=== PATIENT | female | born 1995 | race Caucasian/White ===

== ENCOUNTER 2022-11-07 02:39 | Observation (INO) | payer BC, OTHER, SELFPAY ==
--- NOTE | 2022-11-07 02:39 | OBADM ---
This patient, Jeannine Zamora, admitted to the OB room OB Post 113 for observation. Patient/family oriented to hospital policies and general routines including ID bracelet, bed and alarms, visiting hours, pain management, procedures, bathroom and other care routines, personal items, smoking policy, room service/diet, and visiting hours. Patient/Family are encouraged to report perceived risks to care and to ask questions if they do not understand what they are told or what they should do.
[2022-11-07 03:07] VITALS: BP 130/83; PULSE 85; RESP 16; TEMP 36.6
[2022-11-07 03:13] VITALS: BMI 25.0
[2022-11-07 03:15] VITALS: BP 119/88; PULSE 95
[2022-11-07 03:30] VITALS: BP 120/76; PULSE 84
[2022-11-07 03:45] VITALS: BP 125/76; PULSE 84
[2022-11-07 04:00] VITALS: BP 115/74; PULSE 84
[2022-11-07 04:04] LABS: Appearance Urine Cloudy (Clear); Bacteria Urine 4+ /hpf; Bilirubin Urine Negative (Negative); Blood Urine Negative (Negative); Color Urine Yellow (Yellow); Glucose Urine UA Negative (Negative); Ketones Urine Negative (Negative); Leukocyte Esterase Ur 3+ LEU/UL (Negative); Need Manual Microscopic Reviewed; Nitrate Urine Negative (Negative); Non Pathogenic Casts >20; Protein Urine Trace mg/dL (Negative); RBC Urine 0-2 /hpf (0-2); Specific Grav Ur 1.013 (1.001-1.035); Squamous Epithelial Cell Urine Few /hpf (Few); Urobilinogen Urine 0.2 mg/dL (<2.0); WBC Urine >100 /hpf
[2022-11-07 04:05] LABS: Add Urine Microscopic? YES
--- NOTE | 2022-11-07 04:14 | PC.NURSE ---
Updated Dr. Chambers on assessment and maternal assessments. Notified of UA results. FHT appropriate for gestational age during monitoring. Rare contraction during monitoring that resolved after PO hydration. Patient states she is no longer feeling contractions or tightening at time of update. VSS. Orders received for discharge.
[2022-11-07 04:15] VITALS: BP 119/77; PULSE 85
--- NOTE | 2022-11-07 04:32 | PC.NURSE ---
Discharge instructions reviewed with patient. labor precautions reviewed. Patient instructed to return to OB if she has any concerns or symptoms worsen. Patient states she is resting comfortably at time of discharge and states she is no longer feeling contractions. Patient instructed to nut picker prescriptions from pharmacy and finish entire prescription as prescribed. Antibiotic education provided. Patient states understanding of education and discharge instructions. Patient instructed to follow-up with Dr. Baptiste as scheduled.
--- NOTE | 2022-11-28 20:11 | PM.OBTRLD ---
OB - Triage/Final Diagnosis Visit Information Comments/Additional reasons for admission: I have assessed the risk for this patient, Jeannine Zamora, and determined that she would benefit from observation care. Evaluation Laboratory results: Laboratory Tests 11/07/22 03:10 Urine Color Yellow Urine Appearance Cloudy H Urine pH 6.0 Ur Specific [place] 1.013 Urine Protein Trace Urine Glucose (UA) Negative Urine Ketones Negative Ur Blood (Man) Negative Urine Nitrate Negative Urine Bilirubin Negative Urine Urobilinogen 0.2 Add Ur Microanalysis Reviewed Leukocyte Esterase Rfl 3+ H Urine RBC 0-2 Urine WBC >100 H Ur Squamous Epith Cells Few Urine Bacteria 4+ H Urine Casts >20 Final Diagnosis (1) False labor: Code(s): O47.9 - False labor, unspecified Status: Acute
== END 2022-11-07 04:35 | disposition home or self-care (01) ==
PROVIDERS: Admitting Provider Obstetrics & Gynecology; Visit Provider Obstetrics & Gynecology
DX: O47.02 False labor before 37 completed weeks of gestation, second trimester (principal); Z3A.25 25 weeks gestation of pregnancy
CPT/HCPCS: 81001; 87086; 87088; G0378; G0379

== ENCOUNTER 2023-02-13 17:00 | Inpatient (IN) | payer BC, OTHER, SELFPAY ==
[2023-02-13] VITALS (13 sets, daily range): BP systolic 114–132; BP diastolic 70–92; PULSE 80–111; RESP 16; TEMP 36.1–36.4; O2SAT 100; BMI 27.6
[2023-02-13 17:44] LABS: Basophils Percent Auto 0.4 % (0.2-1.2); Eosinophils Absolute Auto 0.1 K/mm3 (0-0.3); Eosinophils Percent Auto 0.9 % (0-4.4); Hematocrit 34.4 % (37.0-47.0); Hemoglobin 11.6 g/dL (12.0-15.0); Immature Granulocyte Absolute 0.13 K/mm3 (0.00-0.031); Immature Granulocyte Percent A 1.2 % (0-0.5); Lymphocytes Absolute Auto 2.34 K/mm3 (0.9-3.2); Lymphocytes Percent Auto 21.2 % (18.3-44.2); Mean Corpuscular HGB Conc 33.7 g/dl (32-36); Mean Corpuscular Hemoglobin 33.4 pg (26-34); Mean Corpuscular Volume 99.1 fl (80-100); Mean Platelet Volume 12.8 fl (7.4-10.4); Monocytes Absolute Auto 0.8 K/mm3 (0.1-0.6); Monocytes Percent Auto 7.5 % (2.6-8.5); Neutrophils Absolute Auto 7.6 K/mm3 (1.3-6.7); Neutrophils Percent Auto 68.8 % (45.5-73.1); Platelet Count Result 124 k/mm3 (150-375); Red Blood Count 3.47 M/mm3 (4.2-5.4); Red Cell Distribution Width 12.8 % (11.5-14.5)
--- NOTE | 2023-02-13 17:46 | LDADM ---
This patient, Jeannine Zamora, was admitted to Labor/Delivery/Recovery 107 on 02/13/23 at 17:00. Plans for labor, pain management and were discussed with patient. Patient/family oriented to hospital policies and general routines including ID bracelet, bed and alarms, visiting hours, pain management, procedures, bathroom and other care routines, personal items, smoking policy, room service/diet and guest tray routines, security routines, and visiting hours. Patient/Family are encouraged to report perceived risks to care and to ask questions if they do not understand what they are told or what they should do. See OBIX for further documentation.
[2023-02-13] MEDS: OXYTOCIN 30 UNITS/NS 500 ML 30 UNITS/500 ML BAG 6 UNITS IV CONT (17:54)
[2023-02-13] MEDS: LACTATED RINGERS 1,000 ML 125 ML IV CONT (17:54)
[2023-02-14] VITALS (222 sets, daily range): BP systolic 75–151; BP diastolic 49–132; PULSE 68–146; RESP 16–18; TEMP 36.1–37.3; O2SAT 97–100
--- NOTE | 2023-02-14 03:34 | WPDANESEPP ---
Anes - Eval Pre Procedure Procedure: labor epidural Date/Time: 02/14/23 03:34 Pre Op Diagnosis: IOL Patient Data Age: 27 Gender: F Height: 1.63 m Weight: 73 kg Last Vital Signs Temp 36.4 C 02/14/23 01:30 Pulse 71 02/14/23 03:01 Resp 16 02/13/23 18:24 BP 128/68 02/14/23 03:01 Pulse Ox 100 02/13/23 18:24 O2 Del Method Room Air 02/13/23 17:45 Allergies Allergy/AdvReac Type Severity Reaction Status Date / Time No Known Allergies Allergy Verified 11/07/22 04:18 Home Medications Medication Instructions Recorded Confirmed Type Vitamin 1 tablet PO DAILY 11/07/22 02/13/23 History ferrous sulfate 325 mg (65 mg 325 mg PO DAILY 01/20/23 01/20/23 History iron) tablet Laboratory Tests 02/13/23 17:24 WBC 11.0 H K/mm3 (4.5-10.0) RBC 3.47 L M/mm3 (4.2-5.4) Hgb 11.6 L g/dL (12.0-15.0) Hct 34.4 L % (37.0-47.0) MCV 99.1 fl (80-100) MCH 33.4 pg (26-34) MCHC 33.7 g/dl (32-36) RDW 12.8 % (11.5-14.5) Plt Count 124 L k/mm3 (150-375) MPV 12.8 H fl (7.4-10.4) Immature Gran % (Auto) 1.2 H % (0-0.5) Neut % (Auto) 68.8 % (45.5-73.1) Lymph % (Auto) 21.2 % (18.3-44.2) [place] % (Auto) 7.5 % (2.6-8.5) Eos % (Auto) 0.9 % (0-4.4) Baso % (Auto) 0.4 % (0.2-1.2) Lymph # (Auto) 2.34 K/mm3 (0.9-3.2) [place] # (Auto) 0.8 H K/mm3 (0.1-0.6) Eos # (Auto) 0.1 K/mm3 (0-0.3) Baso # (Auto) 0.0 K/mm3 (0.0-0.1) Abs Immat Gran (auto) 0.13 H K/mm3 (0.00-0.031) Absolute Neuts (auto) 7.6 H K/mm3 (1.3-6.7) Absolute Nucleated RBC 0.0 K/mm3 (0.0-0.012) Nucleated RBC % 0.0 % (0.0-0.2) RPR Pending Blood Type O Positive Antibody Screen Negative Patient hx anesthesia problems: none Family hx anesthesia problems: none Results Review: All pre-operative results and documents have been reviewed as part of the pre-operative evaluation. COUNT INCLUDES THE [facility] Family History Family History Father Hypertension Social History Social History Smoking status: Never smoker Substance use: never Lack of Transportation: No Lack of Food: Never True Current Housing: I Have Housing Concerned About Future Housing: No Difficulty Paying Gas/Electric Bills: No Difficulty Paying for Meds: No Currently Unemployed: No Education: Master's Degree or Higher Difficulty w/ Childcare or Family Care: No Spiritual care concerns: No Exam Day of Procedure 02/14/23 03:34 Patient weight: overweight Heart: regular rate and rhythm Lungs: clear to auscultation Airway: Mallampati scale Neurological: alert and oriented
[2023-02-14] MEDS: LACTATED RINGERS 500 ML 999 ML IV CONT (03:40)
--- NOTE | 2023-02-14 07:31 | PM.IMHP ---
H&P: HPI History of Present Illness Date/Time: 02/14/23 07:31 Chief Complaint: induction of labor Narrative: Jeannine is a G1 at 39.3 for elective IOL. has been complicated by anemia and circumvallate placenta, normal growth. On pitocin since last night, has epidural. Review of Systems Review of Systems: All systems reviewed & are unremarkable except as noted in HPI and below PMFSH Family History Family History Father Hypertension Social History Social History Smoking status: Never smoker Substance use: never Lack of Transportation: No Lack of Food: Never True Current Housing: I Have Housing Concerned About Future Housing: No Difficulty Paying Gas/Electric Bills: No Difficulty Paying for Meds: No Currently Unemployed: No Education: Master's Degree or Higher Difficulty w/ Childcare or Family Care: No Spiritual care concerns: No Meds Home Medications and Allergies Home Medications Medication Instructions Recorded Confirmed Type Vitamin 1 tablet PO DAILY 11/07/22 02/13/23 History ferrous sulfate 325 mg (65 mg 325 mg PO DAILY 01/20/23 01/20/23 History iron) tablet Allergies Allergy/AdvReac Type Severity Reaction Status Date / Time No Known Allergies Allergy Verified 11/07/22 04:18 Vital Signs Vital Signs - 24 hr 02/13/23 17:24 02/13/23 18:16 02/13/23 18:31 Temperature Pulse Rate 101 H 91 86 Respiratory Rate Blood Pressure 129/92 H 131/92 H 132/84 Pulse Oximetry Oxygen Delivery 02/13/23 18:46 02/13/23 19:01 02/13/23 20:01 Temperature Pulse Rate 88 88 111 H Respiratory Rate Blood Pressure 123/81 126/81 131/92 H Pulse Oximetry Oxygen Delivery 02/13/23 21:01 02/13/23 21:00 02/13/23 22:01 Temperature 97 F L Pulse Rate 100 80 Respiratory Rate Blood Pressure 126/78 114/74 Pulse Oximetry Oxygen Delivery 02/13/23 22:00 02/13/23 23:01 02/13/23 22:30 Temperature 97.6 F 97.6 F Pulse Rate 90 Respiratory Rate Blood Pressure 119/70 Pulse Oximetry Oxygen Delivery 02/14/23 00:01 02/14/23 00:00 02/14/23 01:01 Temperature 97.6 F Pulse Rate 75 101 H Respiratory Rate Blood Pressure 116/64 119/77 Pulse Oximetry Oxygen Delivery 02/14/23 01:30 02/14/23 02:01 02/14/23 03:01 Temperature 97.6 F Pulse Rate 85 71 Respiratory Rate Blood Pressure 120/70 128/68 Pulse Oximetry Oxygen Delivery 02/14/23 03:46 02/14/23 03:49 02/14/23 03:51 Temperature Pulse Rate 96 100 Respiratory Rate Blood Pressure 134/91 H 120/86 Pulse Oximetry 99 99 Oxygen Delivery 02/14/23 03:54 02/14/23 03:55 02/14/23 03:57 Temperature Pulse Rate 89 69 Respiratory Rate Blood Pressure 116/75 127/83 Pulse Oximetry 100 Oxygen Delivery 02/14/23 03:59 02/14/23 04:00 02/14/23 04:01 Temperature Pulse Rate 82 79 Respiratory Rate Blood Pressure 125/74 131/74 Pulse Oximetry 100 Oxygen Delivery 02/14/23 04:05 02/14/23 04:06 02/14/23 04:10 Temperature Pulse Rate 78 Respiratory Rate Blood Pressure 127/74 Pulse Oximetry 100 100 Oxygen Delivery 02/14/23 04:15 02/14/23 04:16 02/14/23 04:20 Temperature Pulse Rate 74 Respiratory Rate Blood Pressure 117/73 Pulse Oximetry 99 99 Oxygen Delivery 02/14/23 04:25 02/14/23 04:30 02/14/23 04:31 Temperature Pulse Rate 68 Respiratory Rate Blood Pressure 115/74 Pulse Oximetry 98 100 Oxygen Delivery 02/14/23 04:35 02/14/23 04:40 02/14/23 04:45 Temperature Pulse Rate Respiratory Rate Blood Pressure Pulse Oximetry 99 100 99 Oxygen Delivery 02/14/23 04:50 02/14/23 04:55 02/14/23 05:00 Temperature Pulse Rate Respiratory Rate Blood Pressure Pulse Oximetry 98 98 98 Oxygen Delivery
[2023-02-14] MEDS: LACTATED RINGERS 1,000 ML 125 ML IV CONT (09:01)
[2023-02-14 12:48] LABS: Rapid Plasma Reagin Non-Reactive (NonReactive)
[2023-02-14] MEDS: ONDANSETRON INJ 4 MG/2 ML VIAL IV PUSH (14:08)
--- NOTE | 2023-02-14 16:59 | P.PCNOB_ITS ---
OB - Delivery Note Procedure Delivery date: 02/14/23 Procedure: Intrapartal Events: Placental Abruption and Other (shoulder dystocia) Induction method: AROM and Per Pitocin Protocol Delivery monitor: External FHT and Internal Uterine Route of delivery: Laceration Description: Perineal - 2nd Degree Delivery repair: vicryl Quantitative Blood Loss (ml): 310 Anesthesia type: Epidural Disposition: Floor Narrative: Bloody fluid was noted while pushing. With adequate expulsive efforts by the mother, the baby's head was delivered OA. The turtle sign was observed. A 60 second shoulder dystocia was encountered and resolved with McRobert's and suprapubic pressure. The baby's anterior shoulder was delivered under the pubic symphysis and the posterior shoulder and the rest of the baby delivered without difficulty. The was placed on the mothers chest and suctioned and stimulated. The cord was clamped and cut after 30 seconds. Mother and baby both stable. The placenta delivered spontaneously and relatively quickly. Dark clot was noted over almost half of the surface, consistent with placental abruption. [place] Baby Date of : 02/14/23 Time of : 16:42 Weeks of gestation at delivery: 39 gender: Female presentation: vertex Placenta delivery description: Spontaneous Cord Vessel Description: 3 Vessels and Delayed Cord Clamping score one minute: 8 score five minutes: 9
[2023-02-14] MEDS: OXYTOCIN 30 UNITS/NS 500 ML 30 UNITS/500 ML BAG 125 UNITS IV CONT (17:00)
[2023-02-14] MEDS: BENZOCAINE 20% AER SPR (*SP) 56 GM CAN 1 SPRAY TOPICAL (18:51)
[2023-02-14] MEDS: WITCH HAZEL 40 PADS 1 PAD TOPICAL (18:51)
--- NOTE | 2023-02-14 19:02 | OBPPTRN ---
Patient transferred to post room #292 via wheelchair. Support person present. Oriented to unit, room, information board, rooming in, admission packet and security measures. Patient verbalizes understanding.
[2023-02-14] MEDS: IBUPROFEN 600 MG TABLET PO (19:26)
[2023-02-15] MEDS: IBUPROFEN 600 MG TABLET PO ×3 (03:37→17:59)
[2023-02-15 04:42] LABS: Hematocrit 33.9 % (37.0-47.0); Hemoglobin 10.9 g/dL (12.0-15.0)
[2023-02-15 08:05] VITALS: BP 129/77; PULSE 95; RESP 16; TEMP 36.8; O2SAT 98
[2023-02-15] MEDS: DOCUSATE SODIUM 100 MG CAPSULE PO (08:10)
[2023-02-15] MEDS: ACETAMINOPHEN 325 MG TABLET 650 MG PO ×2 (08:10→19:43)
[2023-02-15] MEDS: MULTIVIT/MIN/PREN/FOL AC/IRON TABLET 1 TAB PO (08:10)
--- NOTE | 2023-02-15 08:18 | PM.OBPNVD ---
OB - PN: Subj Subjective Date/time seen: 02/15/23 08:18 Patient comments: no complaints and pain well controlled baby status: doing well and nursing well [place] feeding status: exclusively breast feeding OB - PN: Obj Data Labs 02/15/23 03:41 Labs: Laboratory Results - last 24 hr 02/13/23 02/15/23 17:24 03:41 Hgb 10.9 L Hct 33.9 L RPR Non-reactive OB - PN A/P Plan day: 1 Plan: routine care Time Spent With Patient Time: Total time spent is greater than 50% in coordination of care (as documented) at patient's floor/unit and/or counseling patient: Time with patient: less than 15 minutes Exam Narrative: NAD abdomen soft, nontender, fundus firm below the umbilicus Extremities nontender, 1+ edema
--- NOTE | 2023-02-15 08:46 | WPDANLDPN2 ---
Anes-Prog Note L&D Date/Time: 02/15/23 08:46 Comfortable throughout: labor and delivery Neuraxial method: epidural Epidural/Spinal procedure site: clean & non-tender Neuro status: Neuro function grossly intact. Cardiovascular status: normal Respiratory status: normal Airway patency: baseline Mental status: baseline Post-Op hydration status: normal Vital Signs: Last Vital Signs Temp 37.0 C 02/14/23 23:16 Pulse 103 H 02/14/23 23:16 Resp 18 02/14/23 23:16 BP 113/78 02/14/23 23:16 Pulse Ox 98 02/14/23 23:16 O2 Del Method Room Air 02/14/23 19:20 Pain score (VAS): /10 I/O: Intake & Output 02/14/23 02/15/23 02/15/23 23:59 07:59 15:59 Intake Total 240 Balance 240 Post-procedural complaints: none Patient feedback: Patient satisfied with anesthetic care.
[2023-02-15 12:27] VITALS: BP 123/83; PULSE 96; RESP 16; TEMP 36.3; O2SAT 98
--- NOTE | 2023-02-15 13:56 | PC.NURSE ---
[id number] were made, then consulted with patient to assess needs related to . Mother led the conversation with her?plans to feed?her infant, the?experience so far and encouraged understanding of the benefits of skin to skin (demonstrating unwrapping and placing upright on her chest), stimulating with massage touch, changing positions to encourage wakefulness, how to watch for early feeding cues, responsive feeding, feeding on demand (aiming for 8-12 times in 24 hours, about every 2-3 hours), milk production, building/maintaining a milk supply, duration of feeding, signs of adequate intake/output and how to record on the feeding sheet. Reviewed positioning and ear, shoulder, hip alignment, supporting the breast to facilitate a deep latch, asymmetrical latch (off-center), leading with the chin with a big, open, wide gape and body close to mother. Attempts were made to latch without the nipple shield and there was no successful latch. Discussed with mother how to protect her milk supply with hand expression and/or pumping as she has used the nipple shield a few times. left [id number] and mother was encouraged to call if infant demonstrates feeding cues or not. Resources provided for inpatient and outpatient services with the feeding sheet, mom/baby guide and name written on the white board. [id number] Consulted with patient to assist with needs. Reviewed good handwashing when or touching the breast/nipples to prevent infection. Resources used to facilitate learning were used with the tool. Mother voiced understanding of skin to skin, stimulating with massage touch, responsive feedings, hand expressed colostrum, talking to to encourage if it has been 2 -2.5 hours since the start of the last , to call if infant does not latch, or if there is discomfort with . Reviewed positioning and ear, shoulder, hip alignment, supporting the breast to facilitate a deep latch, asymmetrical latch (off-center), leading with the chin with a big, open, wide gape and body close to mother. Attempts made to latch infant to the left breast were unsuccessful. latched to the right breast using breast support with the sandwich hold in cross cradle positioning. was able to maintain latch for 5-7 minutes and demonstrated swallowing. was placed [id number] and we reviewed protecting the milk supply with pumping and mother received that assistance. [id number] Breast pump provided due to ineffective . Instructions given on cleaning, care, usage, that there should be no pain, pumping schedule for milk production, collection, and storage of human milk. Parents are encouraged to record pumping schedule on the feeding sheet. Patient was assessed for correct placement, flange size (21mm), to pump for comfort and nipple stretching/stimulation for adequate milk production every 3 hours (8 times in 24 hours) 1-2 times at night. Mother voiced understanding of the education shared along with mom and baby guide for additional resource information. Primary RN assisted with flange size change to 21mm. Resources provided for inpatient and outpatient services with the feeding sheet, mom/baby guide and name written on the white board. Mother voiced understanding of information and will call if there is a request for assistance. Primary RN reported later that mother had pumped 22mls. Plan was to syringe feed 10mls of colostrum and refrigerate the other portion for a later feeding if needed.
[2023-02-15 19:30] VITALS: BP 147/102; PULSE 85; RESP 18; TEMP 36.8; O2SAT 99
[2023-02-15 20:00] VITALS: BP 118/77
[2023-02-16] MEDS: IBUPROFEN 600 MG TABLET PO (04:44)
--- NOTE | 2023-02-16 07:26 | P.PNOB_ITS ---
OB - PN: Subj Subjective Date/time seen: 02/16/23 07:26 Patient comments: no complaints and pain well controlled baby status: doing well [place] feeding status: exclusively breast feeding OB - PN: Obj Data Labs 02/15/23 03:41 OB - PN A/P Assessment and Plan (1) , delivered: Code(s): O80 - Encounter for full-term uncomplicated delivery Status: Acute Plan day: 2 Plan: routine care and discharge home Time Spent With Patient Time: Total time spent is greater than 50% in coordination of care (as documented) at patient's floor/unit and/or counseling patient: Time with patient: less than 15 minutes Exam Narrative: NAD abdomen soft, nontender, fundus firm below the umbilicus Extremities nontender, 1+ edema
--- NOTE | 2023-02-16 07:27 | PM.OBDSVD ---
DS: Admitting Diagnosis Discharge Date 02/16/23 Admitting Diagnosis term IUP, elective IOL DS: Discharge Diagnosis Discharge Diagnosis (1) , delivered: Code(s): O80 - Encounter for full-term uncomplicated delivery Status: Acute (2) Shoulder dystocia during labor and delivery: Code(s): O66.0 - Obstructed labor due to shoulder dystocia Status: Acute OB - DS: Summary Hospital Course Hospital Course: Jeannine was admitted for elective induction of labor at term. She proceeded to have a vaginal delivery, complicated by a placental abruption and a 60 second shoulder dystocia. The baby did well. Her course was uncomplicated and she was discharged home in stable condition on PPD 2. OB Procedures : None OB Procedures Intrapartum: Spontaneous Vag Delivery OB Procedures: : None Peripartum Data Infant Delivery Method: Natural Vaginal Laceration Description: Perineal - 2nd Degree complications: none Status at Discharge Functional status at discharge: independent ambulation Time Spent with Patient Time attestation: Total time spent providing and/or coordinating discharge services: Exam Narrative: NAD abdomen soft, appropriately tender Ext non tender, 1+ edema DS: Data Data Completed and Pending Pending studies at discharge: Pending at discharge 02/14/23 16:34 Surgical [PTH] Routine Discharge Plan Discharge Attending physician on discharge: Leana Baptiste Discharging Clinician: Leana Baptiste Anticipated Discharge Date/Time: 02/16/23 07:26 Patient Disposition: Home, Self-Care Activity: pelvic rest Diet: regular Patient Instructions: Antibiotic Form Stand Alone Forms: General Discharge Information Follow-up/Referrals: Leana Baptiste MD [Physician] - 4 Weeks Discharge Medications: Continued Vitamin 1 tablet PO DAILY ferrous sulfate 325 mg (65 mg iron) Tablet 325 mg PO DAILY Date of admission: 02/13/23 17:00 Primary Care Provider: PHYSICIAN,DIRECTOR OF DIGITAL MARKETING Admitting Provider: Leana Baptiste Attending physician on admission: Leana Baptiste Condition: Stable
[2023-02-16 07:31] VITALS: BP 120/84; PULSE 80; RESP 16; TEMP 36.6; O2SAT 97
[2023-02-16] MEDS: MULTIVIT/MIN/PREN/FOL AC/IRON TABLET 1 TAB PO (08:32)
[2023-02-16] MEDS: DOCUSATE SODIUM 100 MG CAPSULE PO (08:32)
[2023-02-16] MEDS: WITCH HAZEL 40 PADS 1 PAD TOPICAL (08:32)
[2023-02-16] MEDS: BENZOCAINE 20% AER SPR (*SP) 56 GM CAN 1 SPRAY TOPICAL (08:32)
--- NOTE | 2023-02-16 09:55 | PC.NURSE ---
On 02/16/23, the student, Magalys Vides, provided care and completed [facility] documentation on this patient. I have reviewed the student's documentation and agree with the findings.
[2023-02-18 14:47] VITALS: BP 131/93; PULSE 75; RESP 20; TEMP 36.8; O2SAT 98
== END 2023-02-16 11:45 | disposition home or self-care (01) | DRG 807 ==
LOC: ANHLDR 17:03 → ANHOB2 02-14 19:10
PROVIDERS: Admitting Provider Obstetrics & Gynecology; Visit Provider Obstetrics & Gynecology
DX: O45.8X3 Other premature separation of placenta, third trimester (principal); Z37.0 Single live birth; Z3A.39 39 weeks gestation of pregnancy; O66.0 Obstructed labor due to shoulder dystocia; O70.1 Second degree perineal laceration during delivery; O99.02 Anemia complicating childbirth; D64.9 Anemia, unspecified; O43.113 Circumvallate placenta, third trimester; Z23 Encounter for immunization
CPT/HCPCS: 36415; 85014; 85018; 85025; 86592; 86850; 86900; 86901; 88307; 90471; 90686; A9270; G0008; J2405; J2590; J2795; J7120

== ENCOUNTER 2023-02-18 15:06 | Outpatient (CLI) | payer BC, OTHER, SELFPAY ==
[2023-02-18 15:35] VITALS: BP 144/93; PULSE 78
[2023-02-18 15:40] LABS: Basophils Absolute Auto 0.1 K/mm3 (0.0-0.1); Basophils Percent Auto 0.5 % (0.2-1.2); Eosinophils Absolute Auto 0.3 K/mm3 (0-0.3); Eosinophils Percent Auto 2.8 % (0-4.4); Hematocrit 35.4 % (37.0-47.0); Hemoglobin 11.8 g/dL (12.0-15.0); Immature Granulocyte Absolute 0.11 K/mm3 (0.00-0.031); Lymphocytes Absolute Auto 2.11 K/mm3 (0.9-3.2); Lymphocytes Percent Auto 19.2 % (18.3-44.2); Mean Corpuscular HGB Conc 33.3 g/dl (32-36); Mean Corpuscular Hemoglobin 33.2 pg (26-34); Mean Corpuscular Volume 99.7 fl (80-100); Mean Platelet Volume 11.2 fl (7.4-10.4); Monocytes Absolute Auto 0.7 K/mm3 (0.1-0.6); Monocytes Percent Auto 6.7 % (2.6-8.5); Neutrophils Absolute Auto 7.7 K/mm3 (1.3-6.7); Neutrophils Percent Auto 69.8 % (45.5-73.1); Platelet Count Result 244 k/mm3 (150-375); Red Blood Count 3.55 M/mm3 (4.2-5.4); Red Cell Distribution Width 12.6 % (11.5-14.5)
[2023-02-18 15:45] VITALS: BP 152/95; PULSE 71
[2023-02-18 15:52] LABS: Alanine Aminotransferase 24 U/L (6-35); Albumin Level 3.6 g/dL (3.5-5.1); Alkaline Phosphatase 116 U/L (38-126); Anion Gap 3 mmol/L (8-16); Aspartate Amino Transferase 34 U/L (14-36); Bilirubin,Total 0.6 mg/dL (0.2-1.3); Blood Urea Nitrogen 13 mg/dL (7-17); Calcium 9.1 mg/dL (8.4-10.2); Carbon Dioxide 26 mmol/L (22-30); Chloride 107 mmol/L (98-107); Estimated Glomerular Filt Rate > 60; Glucose 90 mg/dL (65-110); Potassium 3.7 mmol/L (3.4-5.0); Sodium 136 mmol/L (137-145); Uric Acid 5.1 mg/dL (2.5-7.5)
[2023-02-18 16:00] VITALS: BP 136/79; PULSE 75
== END 2023-02-18 16:25 | disposition home or self-care (01) ==
LOC: ANHOBOP 15:20 → ANHOBPP 15:21
PROVIDERS: Visit Provider Advanced Practice Midwife
DX: O13.9 Gestational [pregnancy-induced] hypertension without significant proteinuria, unspecified trimester (principal); Z3A.00 Weeks of gestation of pregnancy not specified
CPT/HCPCS: 36415; 80053; 84550; 85025; 99199

== ENCOUNTER 2024-10-25 23:56 | Inpatient (IN) | payer BC, SELFPAY ==
[2024-10-26] VITALS (104 sets, daily range): BP systolic 103–159; BP diastolic 60–104; PULSE 82–143; RESP 16; TEMP 36.7–37.3; O2SAT 94–100; BMI 29.7
--- OUTSIDE RECORDS SUMMARY | 2024-10-26 00:04 | XMS_ITS | Data Portability ---
Author Organization [facility] [place] Address [address] [place] [address] [place] [address] Care Team Providers Care Straddle Bug Name Role Phone TONIO WELCH Primary Care Provider [phone] Assessment Encounter Date Assessment Date Assessment LastModified by Organization Details LastModified Time 10/10/2024 10/10/2024 Patient is _37__weeks . Discussed plan. Not available 10/12/2024 09:49:24 10/17/2024 10/17/2024 Patient is _38__weeks . Discussed plan. [email or web address] Not available 10/18/2024 16:38:44 10/24/2024 10/24/2024 Patient is _39__weeks . Discussed plan. Not available 10/24/2024 14:56:10 Plan of Treatment Reminders Order Date Submit Date Provider Last Modified By Organization Details Last Modified Time Details Appointments INDUCTION 2024 05:00A M Laurita Hirsch CNM Not available Not available Not available Lab None recorded. Referral None recorded. Procedures None recorded. Surgeries None recorded. Imaging US, obstetric , follow-up 2024 [id number] [email or web address] [place], [address], [place], [address], 10/11/2024 18:29:56 Medication Orders None recorded. Patient TargetsNo targets recorded. Patient InstructionsNo instructions recorded. Reason for Referral None Reported. Results Created Date Observation Date Name Description Value Unit Range Abnormal Flag Note LastModifiedBy Organization Detail LastModifiedTime 09/13/19 25 09/13/2024 US, obste tric, follo w-up No observ ation record ed. [email or web address] [place] [address], [place], [address], 09/13/2024 10:55:20 09/13/19 25 09/12/2024 US, obste tric, follo w-up No observ ation record ed. [email or web address] [address], [place], [address], 09/13/2024 14:55:14 10/11/19 25 10/11/2024 US, obste tric, follo w-up No observ ation record ed. [email or web address] [place] [address], [place], [address], 10/11/2024 11:30:52 10/11/19 25 10/10/2024 US, obste tric, follo w-up No observ ation record ed. [email or web address] [address], [place], [address], 10/18/2024 11:08:52 Result Notes None recorded. 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 1 10:53:04 Pregnanc y 46957584 Completed 202202/17/2023 Christiane barrera [facility] 4 13:16:30 Placenta circumva llata 8501204 Active Laurita Hirsch CNM [address], [place], [address], [facility] 5 13:42:06 Placenta circumva llata 9102089 Completed growth in 3rd tri Paz Cook null, [facility] 3 13:33:18 Anemia 566434321 Completed 2022 1 tab slowfe daily Paz Cook null, [facility] 3 13:33:18 Pregnanc y 55843359 Active 2023 Christiane Juarez null, [facility] 4 13:16:30 Large for gestatio n age fetus 697805760 Active and history of LGA 9 lb 3 oz Alexsandra Alexandra null, [facility] 5 17:41:39 Past pregnanc y history of shoulder dystocia 429548257 Active 60sec, no injury Laurita Hirsch CNM [address], [place], [address], [facility] 4 14:18:40 Past pregnanc y history of placenta l abruptio n 573640847 Active Laurita Hirsch CNM [address], [place], [address], [facility] 4 14:17:34 Placenta circumva llata 1311290 Active Laurita Hirsch CNM [address], [place], [address], [facility] 5 13:42:06 Marginal insertio n of umbilica l cord 98868757 Active Laurita Hirsch CNM [address], [place], [address], [facility] 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 5 17:42:17 Problem Notes None recorded. Procedures Surgical History Date Name Laterality Status Provider Name and Address Organization Details Recorded Time 2 Date of Last Pap Smear completed Christiane Juarez [facility] 07/06/2022 11:19:06 6 extraction of wisdom tooth completed Christiane Juarez [facility] 04/18/2024 13:13:42 Imaging Results None recorded. Procedure Notes None recorded. Medical Equipment None Reported. Allergies No known drug allergies Medications Name Sig Start Date Stop Date Status Note LastModified by Organization Details LastModified Time labetalol 200 mg tablet Take 1 tablet twice a day by oral route. 03/28 completed Not Available Not Available Not Available sulfamethox azole 800 mg-trimetho prim 160 mg tablet Take 1 tablet every 12 hours by oral route. 03/28 completed Not Available Not Available Not Available methylpredn isolone 4 mg tablets in a dose pack FOLLOW PACKAGE DIRECTION S 03/10 completed Not Available Not Available Not Available nitrofurant oin monohydrate /macrocryst als 100 mg capsule TAKE 1 CAPSULE BY MOUTH EVERY 12 HOURS 11/24 completed Not Available Not Available Not Available active Not Available Not Avai lable Not Available Vitals Date Recorded Body weight Body mass index (BMI) Body height Systolic blood pressure Diastolic blood pressure Provider Name and Address Organization Details Last Updated DateTime 10/10/2024 02114.48 001 g 29.7 kg/m2 162.56 cm 129 mm[Hg] 81 mm[Hg] Christiane Juarez [facility] 5 17:23:35 Date Recorded Body height Body mass index (BMI) Body weight Systolic blood pressure Diastolic blood pressure Provider Name and Address Organization Details Last Updated DateTime 10/17/2024 162.56 cm 29.7 kg/m2 29975.48 g 128 mm[Hg] 87 mm[Hg] Christiane Juarez [facility] 5 17:55:24 Date Recorded Body height Body mass index (BMI) Body weight Systolic blood pressure Diastolic blood pressure Provider Name and Address Organization Details Last Updated DateTime 10/24/2024 162.56 cm 29.7 kg/m2 72834.48 g 132 mm[Hg] 83 mm[Hg] Christiane Juarez [facility] 5 14:05:28 Social History Question Answer Notes LastModified by Organizat ion Details LastModified Time Tobacco Smoking Status Never Smoker Chiaraangela Emmanuelcurtis barrera, [facility] 03/15/2023 12:00:42 Do You Have An Advance Directive? No Information n ot available 03/10/2022 If You Are , What Was Your Level Of Alcohol Consumption Prior To ? Occasional [email or web address] Information not available 05/18/2024 How Many Years Have You Consumed Alcohol? 3 Information not available 03/10/2022 Are You Blind Or Do You Have Difficulty Seeing? No Information n ot available 03/10/2022 What Is Your Level Of Caffeine Consumption? Moderate Information not available 03/10/2022 How Much Tobacco Do You Chew? None Information not available 03/10/2022 In The 14 Days Before Symptom Onset, Have You Had Close Contact With A Laboratory-confirm ed COVID-19 While That Case Was Ill? No Information n ot available 03/10/2022 In The 14 Days Before Symptom Onset, Have You Had Close Contact With A Person Who Is Under Investigation For COVID-19 While That Person Was Ill? No Information not available 03/10/2022 Have You Been To An Area Known To Be High Risk For COVID-19? No Information not available 03/10/2022 Are You Deaf Or Do You Have Serious Difficulty Hearing? No Information not available 03/10/2022 What Type Of Diet Are You Following? REGULAR Information n ot available 03/10/2022 What Is The Highest Grade Or Level Of School You Have Completed Or The Highest Degree You Have Received? [id number] Information not available 03/10/2022 Are There Any Guns Present In Your Home? Yes Information not available 03/10/2022 Do You Use Protection During Sex? No [email or web address] Information not available 05/18/2024 Do You Use Your Seat Belt Or Car Seat Routinely? Yes Information not available 03/10/2022 Do You Have Smoke And Carbon Monoxide Detectors In Your Home? Yes Information not available 03/10/2022 How Much Tobacco Do You Smoke? No Information not available 03/10/2022 Do You Use Sunscreen Routinely? Yes Information not available 03/10/2022 Have You Used IV Drugs? No Information not available 03/10/2022 Do You Have Difficulty Walking Or Climbing Stairs? No [email or web address] Information not available 03/15/2023 Sex: Unknown Functional Status Question Answer Note LastModified by Organizat ion Details LastModified Time Do you use any illicit or recreational drugs? No Information not available 03/10/2022 What is your level of alcohol consumption? None [email or web address] Information not available 05/18/2024 Are you able to walk? YESWOREST Information not available 03/10/2022 Are you able to care for yourself? 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 No [email or web address] Information not available 03/15/2023 What is your exercise level? Moderate Information not available 03/10/2022 Mental Status Question Answer Note LastModified by Organization D etails LastModified Time Do you feel stressed (tense, restless, nervous, or anxious, or unable to sleep at night)? [id number] Information not available 03/10/2022 Family History Relationship Description Onset Age of this Age Resolved Age Notes LastModified by Organization Details LastModified Time Father Hypertensive disorder [email or web address] Not available 04/18 13:12:13 Paternal Grandmother Hypertensive disorder [email or web address] Not available 04/18 13:12:13 Mother Malignant neoplasm of uterus 57 Not available 06/20 18:08:19 Mother Malignant neoplasm of uterus [email or web address] Not available 06/20 18:08:19 Maternal Grandmother Heart disease [email or web address] Not available 04/18 13:12:13 Medical History Condition Response Allergies (Food, seasonal, environmental ) N Other N Drug/Latex Allergies/Reactions N Blood Transfusion N Breast Cancer N Dermatologic Disorders N Lung Disease N Defects or Inherited Disease N Breast Problem N Gestational Diabetes N Hematologic disorders N Anesthesia Complications N History of STI N Deep Vein Thrombosis N Polycystic ovary syndrome N Anxiety Disorder N Autoimmune disease N Arthritis N Polyps N Infertility N Acid Reflux (GERD) N History of abnormal pap N Cancer N Varicosities N Stroke N Neurologic/Epilepsy N Endometriosis N High Cholesterol N Fibromyalgia N Headaches N Kidney Disease N Heart Problems N Thyroid Problems N Kidney or Bladder Problems N GI Problems N Eating Disorder N Anemia N Art (IVF or FET) N Psychiatric Illness N Ovarian Cancer N Diabetes N Pulmonary (TB, Asthma) N Hepatitis/Liver Disease N No Past Medical History N Eczema N Urinary Tract Infection N Abuse/Domestic Violence N Asthma N Trauma/Violence N Depression/ depression N Heart Disease N Pre-Eclampsia N Hypertension N Osteoporosis N Thrombophilias N Gynecological History Statement/Question Response Flow Moderate Date of Last Mammogram Date of LMP 01/25/2024 N STIs/STDs N Was last menstrual period normal Y Date of Last Colonoscopy None Desired Control Method None Abnormal Pap N HPV Vaccine Y Duration of Flow (days) 5 Current Control Method Age at First Child 27 Are cycles usually normal Y Frequency of Cycle (Q days) 23 Sexually Active? Y Menses Monthly Y Date of DEXA bone scan Age of first menstrual cycle 16 Date of Last Pap Smear 03/10/2022 Sexual Problems? N LMP Approximate N Obstetrics History GPAL:G 2 P 1 0 0 1 Type Value Full Term 1 Living 1 Total 2 Past Encounters Encounter ID Performer Location Encounter Start Date Encounter Closed Date Diagnosis/Indication Diagnosis SNOMED-CT Code Diagnosis ICD10 Code Diagnosis Note [id number] Gardenia London CNM [place] [address] [address] 11/03/2020 10:45:20 11/03/2020 11:14:29 Gynecologic examination 16215974 Z01.419 Z11.3 Z11.8 Take Calcium with Vitamin D 1200mg daily if not receiving in daily diet. It is strongly advised to have an annual flu shot and up can obtain at most pharmacies . If you have not had a TDap shot in the last 10 years you should obtain one as well. Discussed with patient & provided with informatio n regarding Gardisil vaccine to prevent the 4 strains for HPV that cause cervical cancer if under age 26. No history of abnormal pap. Declines this year. Encourage safe sexual practices, to use condoms and limit partners if not already in a monogamous relationsh ip. Do monthly self breast exams. Have mammogram yearly or every other year depending on family history. BRCA testing is now available for patients with strong genetic history of female cancer. If interested contact the office. Engage in daily exercise of low impact aerobic exercise 45-60 minutes 4-5 times weekly. Avoid tobacco and illicit drugs as well as using moderation with alcohol intake less than 1-2 8 oz beverages daily. This lifestyle behavior pattern will lead to less health conditions and longer life span. If BMI greater than 25 weight watchers or dietary consult advised. Patient received above instructio ns, and questions have been answered. If you have any questions please call or respond to this email. Patient was made aware of the patient portal and may obtain a paper copy of today's plan if desired. [id number] ANNA Marcano [place] [address] [address] 03/10/2022 09:27:58 03/10/2022 10:01:05 Gynecologic examination 93086750 Z01.419 Take Calcium with Vitamin D 1200mg daily if not receiving in daily diet. It is strongly advised to have an annual flu shot and up can obtain at most pharmacies . If you have not had a TDap shot in the last 10 years you should obtain one as well. Discussed with patient & provided with informatio n regarding Gardisil vaccine to prevent the 4 strains for HPV that cause cervical cancer if under age 26. Encourage safe sexual practices, to use condoms and limit partners if not already in a monogamous relationsh ip. Do monthly self breast exams. Have mammogram yearly or every other year depending on family history. BRCA testing is now available for patients with strong genetic history of female cancer. If interested contact the office. Engage in daily exercise of low impact aerobic exercise 45-60 minutes 4-5 times weekly. Avoid tobacco and illicit drugs as well as using moderation with alcohol intake less than 1-2 8 oz beverages daily. This lifestyle behavior pattern will lead to less health conditions and longer life span. If BMI greater than 25 weight watchers or dietary consult advised. Patient received above instructio ns, and questions have been answered. If you have any questions please call or respond to this email. Patient was made aware of the patient portal and may obtain a paper copy of today's plan if desired. WWEBC - Condoms. Happy with this method.No hx of abnormal papsLast pap 2019Pap done todaySTI testing declinedEn couraged patient to establish care with PCPHx of mother with possible uterine vs ovarian cancer. Encouraged patient to find out more informatio n about this. Genetic testing discussed. RTC in 1 year or sooner if needed [id number] Willem Chambers MD [place] [address] [address] 07/06/2022 11:23:31 07/06/2022 12:08:28 [id number] [facility] [address] [address] 07/06/2022 11:25:25 07/07/2022 12:20:22 Amenorrhea 07770780 N91.2 Venereal d isease screening 342803280 Z11.3 test positive 776434936 Z32.01 Risk factors addressed: Tobacco Cessation, Safe Sexual Practices, environmen talya, work hazards, travel restrictio ns, seat belt use.Eat a health well balanced diet, avoid alcohol, tobacco, and street drugs.Enga ge in daily low impact exercise, avoid temperatur e extremes, and cat, rodent, and bird feces.Avoi d travel to areas where zika virus is a concern.Of fered cf/sma/nip t. Desires testing at 12 weeks. Handouts given and discussed with patient. ildbirth classes recommende d.New OB sheet given.If previous , counseling .Pt verbalizes that she understand s the importance of above instructio ns.All questions were answered.P atient reminded to have annual well woman examinatio n and address [facility] . [id number] Leana Baptiste MD [place] [address] [address] 08/02/2022 16:53:33 08/02/2022 17:28:03 screening 860769904 Z36.82 [id number] Leana Baptiste MD [place] [address] [address] 08/02/2022 17:28:48 08/03/2022 15:58:12 Routine care 432502725 Z34.91 [id number] Leana Baptiste MD [place] [address],[place] [address] 08/31/2022 17:12:59 08/31/2022 18:10:44 Routine care 761105732 Z34.91 [id number] Leana Baptiste MD [place] [address] [address] 09/29/2022 15:33:58 09/29/2022 16:28:03 screening for malformation 777604549 Z36.3 [id number] Leana Baptiste MD [place] [address] [address] 09/29/2022 15:37:52 10/01/2022 14:55:09 Routine care 733882905 Z34.91 [id number] Leana Baptiste MD [place] [address] [address] 10/26/2022 16:44:12 10/27/2022 10:13:04 Routine care 128150936 Z34.91 Placenta circumvallata 5967894 O43.119 [id number] Leana Baptiste MD [place] [address] [address] 11/24/2022 13:46:51 11/24/2022 14:25:26 Placenta circumvallata 3112186 O43.119 Z3A.27 [id number] MD Igor Tucker [address] [address] 11/24/2022 13:48:34 11/24/2022 14:51:30 Routine care 390863546 Z34.91 Placenta circumvallata 5871677 O43.119 Z3A.27 [id number] MD Igor Tucker [address] [address] 12/08/2022 16:47:04 12/08/2022 17:28:59 Routine care 937750537 Z34.91 [id number] MD Igor Tucker [address] [address] 12/27/2022 14:04:02 12/27/2022 14:48:57 Placenta circumvallata 4223626 O43.119 Z3A.27 [id number] MD Igor Tucker [address] [address] 12/27/2022 14:04:25 12/27/2022 16:29:28 Routine care 236005960 Z34.91 [id number] MD Samanta [place] [address] [address] 01/05/2023 16:35:07 01/06/2023 14:27:41 Routine care 727658078 Z34.91 [id number] MD Igor Tucker [address] [address] 01/18/2023 15:59:30 01/18/2023 16:45:49 Placenta circumvallata 9018862 O43.119 Z3A.35 [id number] MD Igor Tucker [address] [address] 01/18/2023 16:00:34 01/19/2023 10:39:46 Routine care 704795185 Z34.91 [id number] MD Igor Tucker [address] [address] 01/26/2023 16:06:00 01/28/2023 15:15:36 Routine care 826498516 Z34.91 [id number] Leana Baptiste MD [place] [address] [address] 02/01/2023 16:15:33 02/02/2023 14:43:14 Routine care 567460945 Z34.91 Placenta circumvallata 5131601 O43.119 Z3A.35 [id number] Leana Baptiste MD [place] [address] [address] 02/08/2023 16:39:51 02/08/2023 17:54:06 Routine care 961463343 Z34.91 [id number] Willem Chambers MD [place] [address] [address] 02/21/2023 12:46:02 02/21/2023 13:39:10 -induced hypertension 45254774 O13.9 Pt here for BP check following f/u at [place] on 02/18 and diagnosed with PP PIH. Pt was started on 200mg Labetalol BID. Pt states she feels good and no signs of PIH. BP today is 131/82. Called [facility] and okay to send out rx until 4wk pp appt. Pt given PIH precaution s. Rx sent. Pt verbalized understand ing. BRITTANEY mcneal [id number] Willem Chambers MD [place] [address],[place] [address] 02/24/2023 09:30:29 02/24/2023 10:35:19 Burning sensation of vulva 916135334 R20.8 27-year-ol d female who presents for urinary symptoms and vulvar symptoms. She is concerned about her vulvar laceration s. She suspects some bleeding from those areas. She was examined. The vulva appears to be healing normally. She has a well healed episiotomy . There is more healing to do but it is appropriat e at this time, the level of healing. She has symptoms of urinary tract infection. She has leukocytes in her urine. We agreed to treat urinary tract infection. We spent over 20 minutes face-to-fa ce. More than 50% was counseling . Urinary tr act infectious disease 06149189 N39.0 [id number] Willem Chambers MD [place] [address] [address] 03/15/2023 12:00:14 03/15/2023 12:35:23 care 165226840 Z39.2 27-year-ol d female who is 4 weeks . She is breastfeed ing, she is not had sex, she is not bleeding, her mood is good, her baby is doing well, she does not want contracept ion. She will return 2 months for well-woman exam. [id number] Willem Chambers MD [place] [address] [address] 03/28/2024 17:02:14 03/28/2024 17:21:14 [id number] Willem Chambers MD [place] [address] [address] 03/28/2024 17:02:47 03/29/2024 12:09:21 Amenorrhea 17943555 N91.2 this patient is a 28-year-ol d female who presents for amenorrhea . She is a positive test. Ultrasound revealed a 1st trimester gestation. Patient has no complaints . We talked about early care. Talked about genetic screening. We talked about her ultrasound results. We talked about the 12 week ultrasound that has genetic screening components . She was given recommenda tions on exercise, diet, over-the-c ounter medication s. We reviewed her obstetric history. We reviewed her medical history. We reviewed her social history. She will begin routine care at her next visit. Patient had a large for gestationa l age baby- 9 lb 4 oz - possible shoulder dystocia. [id number] Willem Chambers MD [place] [address] [address] 04/18/2024 11:34:47 04/18/2024 12:08:30 screening 197714338 Z36.82 Z3A.12 [id number] [facility] [address] [address] 04/18/2024 11:35:44 04/18/2024 14:21:59 Gestation period, 12 weeks 98970058 Z3A.12 Routine an tenatal care 958815542 Z34.90 [id number] [facility] [address] [address] 05/18/2024 10:39:23 05/18/2024 11:20:09 Gestation period, 16 weeks 71551152 Z3A.16 [id number] Willem Chambers MD [place] [address] [address] 06/20/2024 16:49:09 06/21/2024 10:31:29 screening for malformation 593095004 Z36.3 Z3A.21 [id number] [facility] [address] [address] 06/20/2024 16:49:26 06/21/2024 16:56:50 [id number] Willem Chambers MD [place] [address] [address] 07/18/2024 16:51:05 07/18/2024 17:34:59 Placenta circumvallata 6660211 O43.112 O43.102 Z3A.25 [id number] [facility] [address] [address] 07/18/2024 16:51:43 07/19/2024 03:07:58 Gestation period, 25 weeks 77682651 Z3A.25 [id number] Willem Chambers MD [place] [address] [address] 08/15/2024 15:51:31 08/15/2024 16:32:32 Marginal insertion of umbilical cord 16395412 O43.129 O35.8XX0 Z3A.29 [id number] [facility] [address] [address] 08/15/2024 15:51:43 08/15/2024 16:56:03 Gestation period, 29 weeks 06584464 Z3A.29 [id number] Laurita Hirsch [facility] [address] [address] 08/29/2024 18:06:08 09/01/2024 06:05:14 Gestation period, 31 weeks 35581983 Z3A.31 [id number] Willem Chambers MD [place] [address] [address] 09/12/2024 17:24:27 09/13/2024 13:06:15 Large for gestation age fetus 061391242 O36.60X0 O35.8XX0 Z3A.33 [id number] Laurita Hirsch [facility] [address] [address] 09/12/2024 17:24:51 09/14/2024 03:39:38 Gestation period, 33 weeks 80066463 Z3A.33 [id number] Laurita Hirsch [facility] [address] [address] 09/26/2024 17:38:23 09/27/2024 09:38:40 Gestation period, 35 weeks 02542350 Z3A.35 [id number] Laurita Hirsch [facility] [address],[place] [address] 10/03/2024 17:42:42 10/03/2024 20:26:31 [id number] Willem Chambers MD [place] [address],[place] [address] 10/10/2024 16:31:18 10/10/2024 17:42:36 Large for gestation age fetus [id number] Z3A.37 [id number] [facility] [address],[place] [address] 10/10/2024 16:31:41 10/12/2024 10:49:14 Gestation period, 37 weeks [id number] Z3A.37 [id number] Laurita Hirsch [facility] [address],[facility] [place] [address] 10/17/2024 17:45:25 10/18/2024 16:53:11 Gestation period, 38 weeks [id number] Z3A.38 [id number] Laurita Hirsch [facility] [address],[facility] [place] [address] 10/24/2024 13:41:46 10/24/2024 15:01:30 Gestation period, 39 weeks [id number] Z3A.39 Health Concerns Section Related Observation LastModified by Organization Detai ls LastModified Time None Recorded Concern Status LastModified by Organization Details LastModified Time None Recorded Advance Directives Directive N: Payers Encounter Date Sequence Insurance Name Policy Number Policy Glynn Covered Member ID Glynn Member ID Guarantor Name 10/03/2024 1 [place] [id number] Jeannine W Reinneck [id number] Jeannine W Reinneck 10/10/2024 1 [place] [id number] Jeannine W Reinneck [id number] Jeannine W Reinneck 10/10/2024 1 [place] [id number] Jeannine W Reinneck [id number] Jeannine W Reinneck 10/17/2024 1 [place] [id number] Jeannine W Reinneck [id number] Jeannine W Reinneck 10/24/2024 1 [place] [id number] Jeannine W Reinneck [id number] Jeannine W Reinneck OBGyn Episode Ob Episode Information Episode Created Date Number of Fetuses Patient Bloodtype Patient rh Status Prepregnancy Weight lbs Domestic Partner Domestic Partner Phone Father Name Financial Institution Vice President Status 08/03/19 23 1 O Positive 120 CLOSED Fetus Data First Name Last Name Admitted to NICU Weight (g) Sex Living Outcome Pediatric Complications Fetus ID Race Codes Race Delivery Type 4167.37 65 F true Full Term [id number] Vaginal Delivery Problems Problem Notes failed 1 hr - 3hr wnl Problem Name Start Date End Date Resolution Snomed Code Not e Placenta circumvallata [id number] growth in 3rd tri Anemia 11/25/2022 MEDICATION [id number] 1 tab sl owfe daily Dave Calculation Initial Dave Date Initial Exam Date Initial Exam Provider Initial Ultrasound Date Last Menstrual Period Date Ultra Sound Weeks Gestation 02/17/2023 08/02/2022 07/06/2022 05/13/2022 7 Eighteen To Twenty Week Dave Update Ultra Sound Date Fundal Height At Umbil Quickening Date Ultra Sound Latest Weeks Gestation Final Dave Confirmed By Final Dave Confirmed Date Final Dave Date Ultra Sound Latest Days Gestation 0 [email or web address] 08/02/2022 02/18/20 23 0 Pre-melody Flowsheet Flowsheet Date 08/02/2022 Mitchell Score Blood Edema Fundus Height Fundus Units Glucose Ketones Leukocytes Nitrite Labor Signs Protein Cervic Dilation Cervic Effacement Cervic Station neg none none trace Type Weight in lbs Pre/Post Dialysis Refused Weight 125.236222918430 BP Diastolic BP Location Tested BP Systolic BP Type 78 118 Fetus Heart Rate Present A 160 Fetus Movement A No Comments Jeannine is a 26yo G1 at 11.4 for care. her history is noncontributory. She will do labs and NIPT today. NT wnl. Routine care. Flowsheet Date 08/31/2022 Mitchell Score Blood Edema Fundus Height Fundus Units Glucose Ketones Leukocytes Nitrite Labor Signs Protein Cervic Dilation Cervic Effacement Cervic Station none Type Weight in lbs Pre/Post Dialysis Refused Weight 132.817409370272 BP Diastolic BP Location Tested BP Systolic BP Type 75 121 Fetus Heart Rate Present A 140 Fetus Movement A Yes Comments Doing great, feeling well. A Natomy US next. Flowsheet Date 09/29/2022 Mitchell Score Blood Edema Fundus Height Fundus Units Glucose Ketones Leukocytes Nitrite Labor Signs Protein Cervic Dilation Cervic Effacement Cervic Station Type Weight in lbs Pre/Post Dialysis Refused BP Diastolic BP Location Tested BP Systolic BP Type Fetus Heart Rate Present Fetus Movement Comments Flowsheet Date 09/29/2022 Mitchell Score Blood Edema Fundus Height Fundus Units Glucose Ketones Leukocytes Nitrite Labor Signs Protein Cervic Dilation Cervic Effacement Cervic Station neg none none trace Type Weight in lbs Pre/Post Dialysis Refused Weight 138.228295625881 BP Diastolic BP Location Tested BP Systolic BP Type 72 111 Fetus Heart Rate Present A 130 Fetus Movement A No Comments Doing great. Anatomy today c omplete and wnl. Does have circumvallate placenta and double left renal artery, discussed. Flowsheet Date 10/26/2022 Mitchell Score Blood Edema Fundus Height Fundus Units Glucose Ketones Leukocytes Nitrite Labor Signs Protein Cervic Dilation Cervic Effacement Cervic Station neg trace 23 none trace Type Weight in lbs Pre/Post Dialysis Refused Weight 144.350092345520 BP Diastolic BP Location Tested BP Systolic BP Type 72 114 Fetus Heart Rate Present A 155 Fetus Movement A Yes Comments Doing well. No concerns. Reina wth and GCT next visit. Discuss Tdap next. Flowsheet Date 11/24/2022 Mitchell Score Blood Edema Fundus Height Fundus Units Glucose Ketones Leukocytes Nitrite Labor Signs Protein Cervic Dilation Cervic Effacement Cervic Station Type Weight in lbs Pre/Post Dialysis Refused BP Diastolic BP Location Tested BP Systolic BP Type Fetus Heart Rate Present Fetus Movement Comments Flowsheet Date 11/24/2022 Mitchell Score Blood Edema Fundus Height Fundus Units Glucose Ketones Leukocytes Nitrite Labor Signs Protein Cervic Dilation Cervic Effacement Cervic Station neg none none trace Type Weight in lbs Pre/Post Dialysis Refused Weight 149.555319237818 BP Diastolic BP Location Tested BP Systolic BP Type 71 115 Fetus Heart Rate Present A 145 Fetus Movement A Yes Comments Doing great. UTI sx gone. GC T today. Will get Tdap. US today 43%, breech. Continue growth US q4w. Flowsheet Date 12/08/2022 Mitchell Score Blood Edema Fundus Height Fundus Units Glucose Ketones Leukocytes Nitrite Labor Signs Protein Cervic Dilation Cervic Effacement Cervic Station neg none 29 none trace Type Weight in lbs Pre/Post Dialysis Refused Weight 152.650508034739 BP Diastolic BP Location Tested BP Systolic BP Type 82 116 Fetus Heart Rate Present A 140 Fetus Movement A Yes Comments Doing well, no concerns exce pt sore in the morning. Growth US next visit. Will do Tdap. Passed 3 hr GTT. Flowsheet Date 12/27/2022 Mitchell Score Blood Edema Fundus Height Fundus Units Glucose Ketones Leukocytes Nitrite Labor Signs Protein Cervic Dilation Cervic Effacement Cervic Station Type Weight in lbs Pre/Post Dialysis Refused BP Diastolic BP Location Tested BP Systolic BP Type Fetus Heart Rate Present Fetus Movement Comments Flowsheet Date 12/27/2022 Mitchell Score Blood Edema Fundus Height Fundus Units Glucose Ketones Leukocytes Nitrite Labor Signs Protein Cervic Dilation Cervic Effacement Cervic Station neg none trace trace Type Weight in lbs Pre/Post Dialysis Refused Weight 157.447272343986 BP Diastolic BP Location Tested BP Systolic BP Type 75 116 Fetus Heart Rate Present A 130 Fetus Movement A Yes Comments Doing well except uncomforta ble. taking iron. Tdap is done. US 51%. Flowsheet Date 01/05/2023 Mitchell Score Blood Edema Fundus Height Fundus Units Glucose Ketones Leukocytes Nitrite Labor Signs Protein Cervic Dilation Cervic Effacement Cervic Station neg none 33 none trace Type Weight in lbs Pre/Post Dialysis Refused Weight 158.689803935500 BP Diastolic BP Location Tested BP Systolic BP Type 77 111 Fetus Heart Rate Present A 140 Fetus Movement A Yes Comments Doing well. No labor sx. Has prereg scheduled. Growth US and GBS next. Flowsheet Date 01/18/2023 Mitchell Score Blood Edema Fundus Height Fundus Units Glucose Ketones Leukocytes Nitrite Labor Signs Protein Cervic Dilation Cervic Effacement Cervic Station Type Weight in lbs Pre/Post Dialysis Refused BP Diastolic BP Location Tested BP Systolic BP Type Fetus Heart Rate Present Fetus Movement Comments Flowsheet Date 01/18/2023 Mitchell Score Blood Edema Fundus Height Fundus Units Glucose Ketones Leukocytes Nitrite Labor Signs Protein Cervic Dilation Cervic Effacement Cervic Station neg none 37 none trace 1cm 30% Type Weight in lbs Pre/Post Dialysis Refused Weight 160.055016076381 BP Diastolic BP Location Tested BP Systolic BP Type 79 129 Fetus Heart Rate Present A 130 Fetus Movement A Yes Comments Doing fine. Some constipatio n, will increase colace to daily. US 72%. GBS done. Prereg this weekend. Flowsheet Date 01/26/2023 Mitchell Score Blood Edema Fundus Height Fundus Units Glucose Ketones Leukocytes Nitrite Labor Signs Protein Cervic Dilation Cervic Effacement Cervic Station neg trace 35 none trace 1cm 30% Type Weight in lbs Pre/Post Dialysis Refused Weight 163.387417364742 BP Diastolic BP Location Tested BP Systolic BP Type 78 132 Fetus Heart Rate Present A 135 Fetus Movement A Yes Comments Feels like baby dropped. Oth erwise doing well. GBS neg. Precautions reiterated. Flowsheet Date 02/01/2023 Mtichell Score Blood Edema Fundus Height Fundus Units Glucose Ketones Leukocytes Nitrite Labor Signs Protein Cervic Dilation Cervic Effacement Cervic Station neg trace 35 none trace Type Weight in lbs Pre/Post Dialysis Refused Weight 165.781262093258 BP Diastolic BP Location Tested BP Systolic BP Type 82 130 Fetus Heart Rate Present A 135 Fetus Movement A Yes Comments Doing fine. WOuld like IOL b etween 39-40w. Cervix 1.5/40/soft/post. Will schedule. Discussed induction process, risk of long induction, other risks. Precautions given. Flowsheet Date 02/08/2023 Mitchell Score Blood Edema Fundus Height Fundus Units Glucose Ketones Leukocytes Nitrite Labor Signs Protein Cervic Dilation Cervic Effacement Cervic Station neg trace 35 none trace Type Weight in lbs Pre/Post Dialysis Refused Weight 166.435118027056 BP Diastolic BP Location Tested BP Systolic BP Type 83 125 Fetus Heart Rate Present A 135 Fetus Movement A Yes Comments Doing fine. IOL Tuesday night , probably cytotec x1 then pitocin. Still 1.5/50/soft. Discussed induction, questions answered. Flowsheet Date 02/21/2023 Mitchell Score Blood Edema Fundus Height Fundus Units Glucose Ketones Leukocytes Nitrite Labor Signs Protein Cervic Dilation Cervic Effacement Cervic Station Type Weight in lbs Pre/Post Dialysis Refused BP Diastolic BP Location Tested BP Systolic BP Type 82 131 Fetus Heart Rate Present Fetus Movement Comments Menstrual History Last Menstrual Date Menses Monthly On Bcp Conception Prior Menses Frequency Hcg Plus Date Menarche Onset Age 1205/13/2022 Genetic Screening And Infection History Question Response Note Mental Retardation/Autism false Patient's Age Will Be 35 Years Or Older At Estim ated Date of Delivery false Thalassemia (Telugu, Luxembourgish, Mediterranean, Or Background): MCV < 80 false Neural Tube Defect (Meningomyelocele, Spina Bifi da, Or Anencephaly) false Congenital Heart Defect false Down Syndrome false Jono-Sachs (eg, Worship, Cajun, Yakut-Chase) f alse Dennis Disease false Sickle Cell Disease Or Trait () false Hemophilia Or Other Blood Disorders false Muscular Dystrophy false Cystic Fibrosis false Tim's Chorea false Intellectual Disability/Autism false If Yes, Was Person Tested For Fragile X? false Other Inherited Genetic Or Chromosomal Disorder false Maternal Metabolic Disorder (eg, Type 1 Diabetes , PKU) false Patient Or Baby's Father Had A Child With Defects Not Listed Above false Recurrent Loss, Or A Stillbirth false Medications (including Suppl ements, Vitamins, Herbs, OTC Drugs), Illicit/Recreational Drugs, Alcohol false If Yes, Agent(s) And Strength/Dosage false Any Other Genetic History false Live With Someone With TB Or Exposed To TB false Patient Or Partner Has History Of Genital Herpes false Rash Or Viral Illness Since Last Menstrual Perio d false History Of STD, Gonorrhea, Chlamydia, HPV, Syphi lis false Other Infection History false History of HIV false History of Hepatitis false Prior GBS-infected child false Hemoglobinopathy Or Carrier false Other Structural Defect false Recent Travel History Outside of Country false Delivery Information Delivery Date Delivery Type Labor Anesthesia Weeks Gestation Incision Type Labor Labor Length Hrs Delivered By Post Complications Tubal Sterilization Discharge Date Comments 3 Induce d Regional-Ep idural 39.4 false Leana Baptiste MD anemia, placenta circumval latePP PIH! Discharge Information Feeding Method Contraceptive Method Maternal HG B and HCT Levels Ob Episode Information Episode Created Date Number of Fetuses Patient Bloodtype Patient rh Status Prepregnancy Weight lbs Domestic Partner Domestic Partner Phone Father Name Financial Institution Vice President Status 04/18/20 24 1 O Positive 126 Irajrosalinda Lintonalanc k OPEN Fetus Data First Name Last Name Admitted to NICU Weight (g) Sex Living Outcome Pediatric Complications Fetus ID Race Codes Race Delivery Type [id number] Problems Problem Notes bilateral mild pyelectasis- 07/18/24LGA 92% Problem Name Start Date End Date Resolution Snomed Code Not e Marginal insertion of umbilical cord 86626986 Dilatation of renal pelvis 275902587 bilateral Large for gestation age fetus 461476043 and history of LGA 9 lb 3 oz Past history of shoulder dystocia 469497909 60sec, no injury Past history of placental abruption 294236610 Placenta circumvallata [id number] Dave Calculation Initial Dave Date Initial Exam Date Initial Exam Provider Initial Ultrasound Date Last Menstrual Period Date Ultra Sound Weeks Gestation 10/31/2024 03/28/2024 03/28/2024 01/25/2024 9 Eighteen To Twenty Week Dave Update Ultra Sound Date Fundal Height At Umbil Quickening Date Ultra Sound Latest Weeks Gestation Final Dave Confirmed By Final Dave Confirmed Date Final Dave Date Ultra Sound Latest Days Gestation 0 0 Pre- Flowsheet Flowsheet Date 04/18/2024 Mitchell Score Blood Edema Fundus Height Fundus Units Glucose Ketones Leukocytes Nitrite Labor Signs Protein Cervic Dilation Cervic Effacement Cervic Station neg none none trace Type Weight in lbs Pre/Post Dialysis Refused Weight 128.055715762654 BP Diastolic BP Location Tested BP Systolic BP Type 84 118 Fetus Heart Rate Present Fetus Movement A No Comments Patient states that having p ain, discharge, nausea and vomiting. reviewed history will need to discuss method of delivery closer to due date, reviewed options, begin routine care Flowsheet Date 05/18/2024 Mitchell Score Blood Edema Fundus Height Fundus Units Glucose Ketones Leukocytes Nitrite Labor Signs Protein Cervic Dilation Cervic Effacement Cervic Station none Type Weight in lbs Pre/Post Dialysis Refused 133.983255807693 BP Diastolic BP Location Tested BP Systolic BP Type 72 99 Fetus Heart Rate Present A 134 Present Fetus Movement A Yes Comments Patient is having discharge, nausea and vomiting. education and precautions +FM f/u 4 weeks Flowsheet Date 06/20/2024 Mitchell Score Blood Edema Fundus Height Fundus Units Glucose Ketones Leukocytes Nitrite Labor Signs Protein Cervic Dilation Cervic Effacement Cervic Station Type Weight in lbs Pre/Post Dialysis Refused BP Diastolic BP Location Tested BP Systolic BP Type Fetus Heart Rate Present Fetus Movement Comments Flowsheet Date 06/20/2024 Mitchell Score Blood Edema Fundus Height Fundus Units Glucose Ketones Leukocytes Nitrite Labor Signs Protein Cervic Dilation Cervic Effacement Cervic Station Type Weight in lbs Pre/Post Dialysis Refused 145.1262252419 BP Diastolic BP Location Tested BP Systolic BP Type 73 117 Fetus Heart Rate Present Fetus Movement A Yes Comments Patient states that is havin g some discharge. precautions and education reviewed. +FM us shows complete anatomy, MCI, circumvallate placenta, efw 85% rpt in 4 weeks Flowsheet Date 07/18/2024 Mitchell Score Blood Edema Fundus Height Fundus Units Glucose Ketones Leukocytes Nitrite Labor Signs Protein Cervic Dilation Cervic Effacement Cervic Station Type Weight in lbs Pre/Post Dialysis Refused BP Diastolic BP Location Tested BP Systolic BP Type Fetus Heart Rate Present Fetus Movement Comments Flowsheet Date 07/18/2024 Mitchell Score Blood Edema Fundus Height Fundus Units Glucose Ketones Leukocytes Nitrite Labor Signs Protein Cervic Dilation Cervic Effacement Cervic Station neg none Type Weight in lbs Pre/Post Dialysis Refused 152.679821999552 BP Diastolic BP Location Tested BP Systolic BP Type 70 115 Fetus Heart Rate Present Fetus Movement A Yes Comments Patient is having discharge. reviewed us, breech, bilateral pyelectasis, f/u 4 weeks with GCT, precautions and education, +FM Flowsheet Date 08/15/2024 Mitchell Score Blood Edema Fundus Height Fundus Units Glucose Ketones Leukocytes Nitrite Labor Signs Protein Cervic Dilation Cervic Effacement Cervic Station Type Weight in lbs Pre/Post Dialysis Refused BP Diastolic BP Location Tested BP Systolic BP Type Fetus Heart Rate Present Fetus Movement Comments Flowsheet Date 08/15/2024 Mitchell Score Blood Edema Fundus Height Fundus Units Glucose Ketones Leukocytes Nitrite Labor Signs Protein Cervic Dilation Cervic Effacement Cervic Station neg none Type Weight in lbs Pre/Post Dialysis Refused 158.600843709242 BP Diastolic BP Location Tested BP Systolic BP Type 75 123 Fetus Heart Rate Present Fetus Movement A Yes Comments Patient is having discharge. reviewed us, breech start spinning babies exercises, LGA will rpt in 4 weeks, ok for tdap,+FM, precautions and education Flowsheet Date 08/29/2024 Mitchell Score Blood Edema Fundus Height Fundus Units Glucose Ketones Leukocytes Nitrite Labor Signs Protein Cervic Dilation Cervic Effacement Cervic Station neg none Type Weight in lbs Pre/Post Dialysis Refused Weight 162.558444515411 BP Diastolic BP Location Tested BP Systolic BP Type 80 120 Fetus Heart Rate Present Fetus Movement A Yes Comments Patient is having some disch arge. transverse lie continue exercises, +FM, precautions and education. call for preadmit f/u 2 weeks Flowsheet Date 09/12/2024 Mitchell Score Blood Edema Fundus Height Fundus Units Glucose Ketones Leukocytes Nitrite Labor Signs Protein Cervic Dilation Cervic Effacement Cervic Station Type Weight in lbs Pre/Post Dialysis Refused BP Diastolic BP Location Tested BP Systolic BP Type Fetus Heart Rate Present Fetus Movement Comments Flowsheet Date 09/12/2024 Mitchell Score Blood Edema Fundus Height Fundus Units Glucose Ketones Leukocytes Nitrite Labor Signs Protein Cervic Dilation Cervic Effacement Cervic Station neg none Type Weight in lbs Pre/Post Dialysis Refused 166.735204953890 BP Diastolic BP Location Tested BP Systolic BP Type 75 119 Fetus Heart Rate Present Fetus Movement A Yes Comments Patient is having some disch arge. reviewed precautions and education, +FM efw 92%, rt pyelectasis will f/u in 4 weeks has preadmit f/u 2 weeks Flowsheet Date 09/26/2024 Mitchell Score Blood Edema Fundus Height Fundus Units Glucose Ketones Leukocytes Nitrite Labor Signs Protein Cervic Dilation Cervic Effacement Cervic Station neg none 37 cm Type Weight in lbs Pre/Post Dialysis Refused 169.885429926356 BP Diastolic BP Location Tested BP Systolic BP Type 78 122 Fetus Heart Rate Present A 145 Present Fetus Movement A Yes Comments us next visit plan gbs, +FM no complaints, reviewed education and precautions Flowsheet Date 10/03/2024 Mitchell Score Blood Edema Fundus Height Fundus Units Glucose Ketones Leukocytes Nitrite Labor Signs Protein Cervic Dilation Cervic Effacement Cervic Station Type Weight in lbs Pre/Post Dialysis Refused BP Diastolic BP Location Tested BP Systolic BP Type Fetus Heart Rate Present Fetus Movement Comments Flowsheet Date 10/10/2024 Mitchell Score Blood Edema Fundus Height Fundus Units Glucose Ketones Leukocytes Nitrite Labor Signs Protein Cervic Dilation Cervic Effacement Cervic Station Type Weight in lbs Pre/Post Dialysis Refused BP Diastolic BP Location Tested BP Systolic BP Type Fetus Heart Rate Present Fetus Movement Comments Flowsheet Date 10/10/2024 Mitchell Score Blood Edema Fundus Height Fundus Units Glucose Ketones Leukocytes Nitrite Labor Signs Protein Cervic Dilation Cervic Effacement Cervic Station neg trace Type Weight in lbs Pre/Post Dialysis Refused 173.191846893891 BP Diastolic BP Location Tested BP Systolic BP Type 81 129 Fetus Heart Rate Present Fetus Movement A Yes Comments Patient is having cramping, contractions, pain, pressure, discharge and swelling. discussed LGA, risk of shoulder dystocia, injury, , discussed 39 week IOL vs 39 week , pt to decide will f/u one week Flowsheet Date 10/17/2024 Mitchell Score Blood Edema Fundus Height Fundus Units Glucose Ketones Leukocytes Nitrite Labor Signs Protein Cervic Dilation Cervic Effacement Cervic Station neg none 39 cm Type Weight in lbs Pre/Post Dialysis Refused Weight 173.575505878612 BP Diastolic BP Location Tested BP Systolic BP Type 87 128 Fetus Heart Rate Present A 150 Fetus Movement A Yes Comments Patient is having some contr actions. pt unsure about IOL vs c/s reviewed risks as listed above, wants membrane sweep today +FM will call tuesday Flowsheet Date 10/24/2024 Mitchell Score Blood Edema Fundus Height Fundus Units Glucose Ketones Leukocytes Nitrite Labor Signs Protein Cervic Dilation Cervic Effacement Cervic Station neg none 1cm 70% -2 Type Weight in lbs Pre/Post Dialysis Refused Weight 173.769368629062 BP Diastolic BP Location Tested BP Systolic BP Type 83 132 Fetus Heart Rate Present A 150 Fetus Movement A Yes Comments Patient is having some contr actions and discharge. membrane sweep done, iol tuesday precautions and education +FM Menstrual History Last Menstrual Date Menses Monthly On Bcp Conception Prior Menses Frequency Hcg Plus Date Menarche Onset Age 0901/25/2024 Delivery Information Delivery Date Delivery Type Labor Anesthesia Weeks Gestation Incision Type Labor Labor Length Hrs Delivered By Post Complications Tubal Sterilization Discharge Date Comments Discharge Information Feeding Method Contraceptive Method Maternal HG B and HCT Levels
--- NOTE | 2024-10-26 00:20 | LDADM ---
This patient, Jeannine Zamora, was admitted to Labor/Delivery/Recovery 105 on 10/25/24 at 23:56. Plans for labor, pain management and were discussed with patient. Patient/family oriented to hospital policies and general routines including ID bracelet, bed and alarms, visiting hours, pain management, procedures, bathroom and other care routines, personal items, smoking policy, room service/diet and guest tray routines, security routines, and visiting hours. Patient/Family are encouraged to report perceived risks to care and to ask questions if they do not understand what they are told or what they should do. See [facility] for further documentation.
[2024-10-26 00:42] LABS: Basophils Absolute Auto 0.1 K/mm3 (0.0-0.1); Basophils Percent Auto 0.4 % (0.2-1.2); Eosinophils Absolute Auto 0.1 K/mm3 (0-0.3); Eosinophils Percent Auto 0.9 % (0-4.4); Hematocrit 38.9 % (37.0-47.0); Hemoglobin 12.9 g/dL (12.0-15.0); Immature Granulocyte Absolute 0.26 K/mm3 (0.00-0.031); Immature Granulocyte Percent A 1.6 % (0-0.5); Immature Platelet Fraction Pct 20.6 % (0.9-11.2); Lymphocytes Absolute Auto 2.54 K/mm3 (0.9-3.2); Lymphocytes Percent Auto 15.5 % (18.3-44.2); Mean Corpuscular HGB Conc 33.2 g/dl (32-36); Mean Corpuscular Hemoglobin 32.7 pg (26-34); Mean Corpuscular Volume 98.5 fl (80-100); Mean Platelet Volume 13.1 fl (7.4-10.4); Monocytes Absolute Auto 1.3 K/mm3 (0.1-0.6); Monocytes Percent Auto 7.6 % (2.6-8.5); Neutrophils Absolute Auto 12.2 K/mm3 (1.3-6.7); Platelet Count Result 154 k/mm3 (150-375); Red Blood Count 3.95 M/mm3 (4.2-5.4); Red Cell Distribution Width 12.7 % (11.5-14.5); White Blood Count 16.4 K/mm3 (4.5-10.0)
[2024-10-26] MEDS: LACTATED RINGERS 500 ML 999 ML IV CONT (00:42)
[2024-10-26] MEDS: AMPICILLIN 2 GM/NS 100 ML 2 GM/100 ML BAG IVPB (00:42)
--- NOTE | 2024-10-26 00:46 | WPDANESEPP ---
Anes - Eval Pre Procedure Procedure: Labor Epidural Date/Time: 10/26/24 00:46 Surgeon: Joycelyn Preop Diagnosis: Labor Pain Pre Op Diagnosis: IOL Patient Data Age: 28 Gender: F Height: Weight: Last Vital Signs Pulse 97 10/26/24 00:45 BP 141/94 H 10/26/24 00:45 Pulse Ox 99 10/26/24 00:31 O2 Del Method Room Air 10/26/24 00:20 Allergies Allergy/AdvReac Type Severity Reaction Status Date / Time No Known Allergies Allergy Verified 10/26/24 00:27 Home Medications ?Medication ?Instructions ?Recorded ?Confirmed ?Type Vitamin 1 tablet PO DAILY 11/07/22 10/26/24 History Laboratory Tests 10/26/24 00:17 WBC 16.4 H K/mm3 (4.5-10.0) RBC 3.95 L M/mm3 (4.2-5.4) Hgb 12.9 g/dL (12.0-15.0) Hct 38.9 % (37.0-47.0) MCV 98.5 fl (80-100) MCH 32.7 pg (26-34) MCHC 33.2 g/dl (32-36) RDW 12.7 % (11.5-14.5) Plt Count 154 k/mm3 (150-375) MPV 13.1 H fl (7.4-10.4) Immature Gran % (Auto) 1.6 H % (0-0.5) Neut % (Auto) 74.0 H % (45.5-73.1) Lymph % (Auto) 15.5 L % (18.3-44.2) [place] % (Auto) 7.6 % (2.6-8.5) Eos % (Auto) 0.9 % (0-4.4) Baso % (Auto) 0.4 % (0.2-1.2) Lymph # (Auto) 2.54 K/mm3 (0.9-3.2) [place] # (Auto) 1.3 H K/mm3 (0.1-0.6) Eos # (Auto) 0.1 K/mm3 (0-0.3) Baso # (Auto) 0.1 K/mm3 (0.0-0.1) Abs Immat Gran (auto) 0.26 H K/mm3 (0.00-0.031) Absolute Neuts (auto) 12.2 H K/mm3 (1.3-6.7) Absolute Nucleated RBC 0.000 K/mm3 (0.0-0.012) Nucleated RBC % 0.0 % (0.0-0.2) % Immature Plt Fraction 20.6 H % (0.9-11.2) : gestational age (, PANDA 11/01/24) Patient hx anesthesia problems: none Family hx anesthesia problems: none Results Review: All pre-operative results and documents have been reviewed as part of the pre-operative evaluation. PMFSH Family History Family History Father Hypertension Mother Uterine cancer Social History Social History Smoking status: Never smoker Substance use: never Do You Feel Safe in your Home?: Yes Lack of Transportation: No Lack of Food: Never True Current Housing: I Have Housing Concerned About Future Housing: No Difficulty Paying Gas/Electric Bills: No Difficulty Paying for Meds: No Currently Unemployed: No Education: Master's Degree or Higher Difficulty w/ Childcare or Family Care: No Spiritual care concerns: No Exam Day of Procedure 10/26/24 00:46 Patient weight: normal Heart: regular rate and rhythm Lungs: normal air movement Airway: Mallampati scale class II Neurological: alert and oriented
[2024-10-26 01:38] LABS: Creatinine Urine 23.8 mg/dL; Total Protein Urine Random 19 mg/dL
[2024-10-26 02:16] LABS: Alanine Aminotransferase 17 U/L (6-35); Albumin Level 3.9 g/dL (3.5-5.1); Alkaline Phosphatase 151 U/L (38-126); Anion Gap 9 mmol/L (4-12); Aspartate Amino Transferase 34 U/L (14-36); Bilirubin,Total 0.5 mg/dL (0.2-1.3); Blood Urea Nitrogen 12 mg/dL (7-17); Calcium 9.2 mg/dL (8.4-10.2); Carbon Dioxide 17 mmol/L (22-30); Chloride 108 mmol/L (98-107); Estimated Glomerular Filt Rate > 60; Glucose 95 mg/dL (65-110); Sodium 134 mmol/L (137-145); Uric Acid 3.9 mg/dL (2.5-7.5)
[2024-10-26 02:38] LABS: Syphilis IgG/IgM Antibody Non-Reactive (Nonreactive)
[2024-10-26 02:52] LABS: HIV 1/2 Ab P24 Ag Result Negative (Negative)
[2024-10-26 04:37] LABS: OBXCEM ROM Plus Positive (Negative)
[2024-10-26] MEDS: AMPICILLIN 1 GM/NS 50 ML 1 GM/50 ML BAG IVPB ×2 (04:48→08:37)
--- NOTE | 2024-10-26 07:33 | WPDOBADMIT ---
Obstetrics - Admit Note Admission Note: record reviewed. No pertinent additions to the history and/or any subsequent changes in the physical findings that are not consistent with the expected course of the were found. Additions to the history and/or subsequent changes in the physical findings follow. SROM, SVE /-1 AROm forebag anticipate vaginal delivery
--- NOTE | 2024-10-26 09:36 | PM.OBPRVD ---
OB - Vaginal Delivery Note Procedure Delivery date: 10/26/24 Events: Other (LGA) Induction method: None Delivery augmentation: Rupture of Membranes Delivery monitor: External FHT and External Uterine Route of delivery: Episiotomy description: None Laceration Description: None Specimen: Yes Quantitative Blood Loss (ml): 100 Anesthesia type: Epidural Disposition: Floor Complications: No immediate complications Baby Date of : 10/26/24 Time of : 09:28 Gestational Age by Date: 39 Infant gender: Male presentation: vertex position: Left Occiput Anterior Placenta delivery description: Spontaneous Cord Vessel Description: 3 Vessels and Delayed Cord Clamping score one minute: 9 score five minutes: 9
[2024-10-26] MEDS: OXYTOCIN 30 UNITS/NS 500 ML 30 UNITS/500 ML BAG 125 UNITS IV CONT (10:38)
[2024-10-26] MEDS: IBUPROFEN 600 MG TABLET PO ×2 (10:38→16:51)
--- NOTE | 2024-10-26 11:02 | S_PTH ---
PATIENT: Jeannine Zamora LOC: [facility] U#:[id number] AGE/SX: 28/F ROOM: 290 RE10/25/[address]: Willem Chambers MD : [id number] BED: 00 DIS: 10/28/2024 SPEC #: [id number] RECD: 10/29/24 07:27 STATUS: [place] REQ #: [id number] TY: 10/26/24 11:[address]: Willem Chambers DEPT: [facility] Surgical RECD BY: Cherri Dempsey ENTERED: 10/29/24 07:28 SP TYPE: Surgical OTHR DR: Isaiah UribeMD Tissues: A - Placenta Procedures: Hematoxylin and Eosin Stain Gross and Microscopic Level 5
[2024-10-26] MEDS: ACETAMINOPHEN 325 MG TABLET 650 MG PO ×2 (12:11→19:49)
[2024-10-26] MEDS: WITCH HAZEL 40 PADS 1 PAD TOPICAL (12:13)
--- NOTE | 2024-10-26 13:43 | OBPPTRN ---
Patient transferred to post room #290 via wheelchair. Support person present. Oriented to unit, room, information board, rooming in, admission packet and security measures. Patient verbalizes understanding.
--- NOTE | 2024-10-26 15:30 | PC.NURSE ---
Introductions were made, then consulted with patient to assess needs related to . Discussed with mother her plans to feed her and the experience so far. She breastfed her first child but says that they struggled in the beginning. This baby had a low glucose and needed gel and formula supplementation. Mom states that he has spit up twice since the feeding and now has the hiccups. She would like to try to breastfeed so we placed baby in cradle hold on the right breast. Baby will root and hold the nipple in his mouth but does not latch or suckle. Encouraged mom to give him a little time to recover from the spit up and that he may not be hungry since he was just supplemented. Suggested mom keep him skin to skin. Resources provided for inpatient and outpatient services with the feeding sheet, mom/baby guide and name written on the communication board. Mother voiced understanding of information and will call if there is a request for assistance. Reported to the Primary RN.?
[2024-10-26] MEDS: DOCUSATE SODIUM 100 MG CAPSULE PO (16:51)
[2024-10-27 03:50] VITALS: BP 107/70; PULSE 67; RESP 16; TEMP 36.6; O2SAT 98
[2024-10-27] MEDS: IBUPROFEN 600 MG TABLET PO ×2 (04:00→13:33)
[2024-10-27 04:50] LABS: Hematocrit 32.5 % (37.0-47.0); Hemoglobin 10.5 g/dL (12.0-15.0)
--- NOTE | 2024-10-27 07:02 | WPDANLDPN2 ---
Anes-Prog Note L&D Date/Time: 10/27/24 07:02 Comfortable throughout: labor and delivery Neuraxial method: epidural Epidural/Spinal procedure site: clean & non-tender Neuro status: Neuro function grossly intact. Cardiovascular status: normal Respiratory status: normal Airway patency: baseline Mental status: baseline Post-Op hydration status: normal Vital Signs: Last Vital Signs Temp 98 F 10/27/24 03:50 Pulse 67 10/27/24 03:50 Resp 16 10/27/24 03:50 BP 107/70 10/27/24 03:50 Pulse Ox 98 10/27/24 03:50 O2 Del Method Room Air 10/26/24 19:30 Pain score (VAS): 0 I/O: Intake & Output 10/26/24 10/26/24 10/27/24 15:59 23:59 07:59 Intake Total 500 Balance 500 Post-procedural complaints: none Patient feedback: Patient satisfied with anesthetic care.
[2024-10-27 08:11] VITALS: BP 107/65; PULSE 80; RESP 18; TEMP 36.3; O2SAT 97
[2024-10-27] MEDS: ACETAMINOPHEN 325 MG TABLET 650 MG PO ×2 (08:13→17:40)
[2024-10-27] MEDS: DOCUSATE SODIUM 100 MG CAPSULE PO ×2 (08:13→17:40)
[2024-10-27] MEDS: MULTIVIT/MIN/PREN/FOL AC/IRON TABLET 1 TAB PO (08:13)
--- NOTE | 2024-10-27 11:12 | P.PNOB_ITS ---
OB - PN: Subj Subjective Date/time seen: 10/27/24 11:12 Patient comments: no complaints, pain well controlled, incisional pain, tolerating diet and flatus present OB - PN: Obj Data Labs 10/27/24 03:45 10/26/24 00:17 Labs: Laboratory Results - last 24 hr 10/27/24 03:45 Hgb 10.5 L Hct 32.5 L OB - PN A/P Plan day: 1 Plan: routine care Comments: No problems, routine care Time Spent With Patient Time: Total time spent is greater than 50% in coordination of care (as documented) at patient's floor/unit and/or counseling patient: Exam 2 Const: General: comfortable, no acute distress and alert Resp: Effort & Inspection: normal respiratory effort Auscultation: no crackles, no rales and no rhonchi Cardio: Rate: regular rate Heart sounds: no click, no murmurs and no rubs GI: Inspection: non-distended GI Palp: No Tenderness to palpation present (GI) Auscultation: normal bowel sounds Other: Incision - CDI Extrem: General: normal to inspection, no pedal edema and no calf tenderness
[2024-10-27 19:55] VITALS: BP 115/75; PULSE 79; RESP 16; TEMP 36.2; O2SAT 98
[2024-10-28] MEDS: IBUPROFEN 600 MG TABLET PO (04:00)
[2024-10-28] MEDS: MULTIVIT/MIN/PREN/FOL AC/IRON TABLET 1 TAB PO (08:30)
[2024-10-28] MEDS: ACETAMINOPHEN 325 MG TABLET 650 MG PO (08:30)
[2024-10-28] MEDS: TETANUS,DIPHTHERIA,AC PERTUSSIS ADULT (0.5 ML) BOOSTRIX IM (08:31)
[2024-10-28 08:35] VITALS: BP 132/94; PULSE 73; RESP 18; TEMP 36.3; O2SAT 98
--- NOTE | 2024-10-28 10:45 | P.PNOB_ITS ---
OB - PN: Subj Subjective Date/time seen: 10/28/24 10:45 Patient comments: no complaints, pain well controlled and tolerating diet OB - PN: Obj Data Labs 10/27/24 03:45 10/26/24 00:17 OB - PN A/P Plan day: 2 Plan: routine care and discharge home Time Spent With Patient Time: Total time spent is greater than 50% in coordination of care (as documented) at patient's floor/unit and/or counseling patient: Exam 2 Const: General: comfortable and no acute distress Resp: Effort & Inspection: normal respiratory effort Auscultation: no rales, no rhonchi and no wheezes Cardio: Rate: regular rate Heart sounds: no click, no murmurs and no rubs GI: GI Palp: Yes Soft to palpation and No Tenderness to palpation present (GI) Auscultation: normal bowel sounds Extrem: General: normal to inspection, no pedal edema and no calf tenderness
--- NOTE | 2024-10-28 10:46 | P.DS_ITS ---
DS: Admitting Diagnosis Discharge Date 10/28/24 Admitting Diagnosis term DS: Discharge Diagnosis Discharge Diagnosis (1) Term delivered: Code(s): O80 - Encounter for full-term uncomplicated delivery Status: Acute OB - DS: Summary OB Procedures : None OB Procedures Intrapartum: Spontaneous Vag Delivery OB Procedures: : None Peripartum Data Laceration Description: None Episiotomy description: None Time Spent with Patient Time attestation: Total time spent providing and/or coordinating discharge services: DS: Data Data Completed and Pending Pending studies at discharge: Pending at discharge 10/26/24 11:02 Surgical [PTH] Routine Discharge Plan Discharge Discharging Clinician: Willem Chambers Patient Disposition: Home Activity: pelvic rest Diet: regular Patient Instructions: Antibiotic Form Patient Language: Luxembourgish Stand Alone Forms: General Discharge Information Follow-up/Referrals: Willem Chambers MD [Physician] - Discharge Medications: Continued Vitamin 1 tablet PO DAILY Date of admission: 10/25/24 23:56 Primary Care Provider: FernandoIsaiah Admitting Provider: Willem Chambers Attending physician on admission: Willem Chambers Condition: Stable
--- NOTE | 2024-10-28 14:40 | PC.NURSE ---
Patient viewed the discharge video Mother & Baby Care, The First Two Weeks. Patient was given the opportunity and encouraged to ask questions. Patient verbalized understanding of information shared and has been given the mother/baby guide for home reference.
[2024-10-29 14:44] VITALS: BP 129/97; PULSE 90; RESP 18; TEMP 36.4; O2SAT 99
== END 2024-10-28 15:20 | disposition home or self-care (01) | DRG 807 ==
LOC: ANHLDR 10-26 00:02 → ANHOB2 10-26 13:56
PROVIDERS: Admitting Provider Obstetrics & Gynecology; PCP Family Medicine; Referring Provider Advanced Practice Midwife; Visit Provider Obstetrics & Gynecology
DX: O36.63X0 Maternal care for excessive fetal growth, third trimester, not applicable or unspecified (principal); Z37.0 Single live birth; Z3A.39 39 weeks gestation of pregnancy; O14.94 Unspecified pre-eclampsia, complicating childbirth
CPT/HCPCS: 36415; 80053; 82570; 84112; 84156; 84550; 85014; 85018; 85025; 85055; 86593; 86703; 86850; 86900; 86901; 88307; 90715; A9270; G0432; J0290; J2590; J2795; J7120